=== PATIENT | male | born 1945 | race Caucasian/White ===

== ENCOUNTER 2020-03-16 06:11 | Day surgery (SDC) | payer OTHER ==
[2020-03-16] MEDS ORDERED: LIDOCAINE-MPF 2% 5 ML VIAL IM ONE (06:12)
[2020-03-16] MEDS ORDERED: MIDAZOLAM 2 MG/2 ML VIAL IVP ONE (06:12)
[2020-03-16] MEDS ORDERED: PROPOFOL 200 MG/20 ML VIAL IVP ONE (06:12)
[2020-03-16] MEDS ORDERED: fentaNYL 100 MCG/2 ML VIAL IVP ONE (06:12)
[2020-03-16] MEDS ORDERED: LACTATED RINGERS 1,000 ML IV ONE (06:35)
[2020-03-16] MEDS ORDERED: CEFAZOLIN SODIUM IN 0.9 % NACL 2 GM/100 ML BAG IV ONE (07:01)
[2020-03-16] MEDS ORDERED: LIDOCAINE 1%-EPI 1:100000 20 ML MDV SUBQ ONE ×2 (07:17)
[2020-03-16] MEDS ORDERED: BUPIVACAINE 0.25% PF 30 ML VIAL SUBQ ONE (07:17)
[2020-03-16] MEDS ORDERED: BUPIVACAINE 0.25% PF 30 ML VIAL ONE (07:18)
[2020-03-16] MEDS ORDERED: LIDOCAINE 1%-EPI 1:100000 20 ML MDV ONE (07:18)
--- NOTE | 2020-03-16 07:29 | ANESTHESIA ---
Pre-Anesthesia VS, & Labs - Diagnosis left chest cancer - Procedure portacath placement Vital Signs: Temp Pulse Resp BP Pulse Ox 36.4 C L 76 18 109/83 H 99 03/16/20 06:37 03/16/20 06:37 03/16/20 06:37 03/16/20 06:37 03/16/20 06:37 Height 6 ft 3 in Weight (kg) 70 kg Body Mass Index 20.2 - NPO >8 hours - Lab Results Lab results reviewed: Yes Home Medications and Allergies Home Medications: Ambulatory Orders Vit A/Vit C/Vit E/Zinc/Copper [Preservision Areds Softgel] 1 each PO DAILY 03/12/20 Acyclovir 400 mg PO BID 03/03/20 Aspirin 325 mg PO DAILY 03/03/20 Atorvastatin Calcium 40 mg PO DAILY 03/03/20 Dronedarone HCl [Multaq] 400 mg PO DAILY 03/03/20 Multivitamin [Daily Multiple Vitamin] 1 tab PO BID 03/03/20 Sulfamethox/Trimeth 800/160 [Bactrim Ds] 1 tab PO DAILY 03/03/20 Vit A/Vit C/Vit E/Zinc/Copper [Preservision Areds Softgel] 1 each PO DAILY 03/12/20 Allergies/Adverse Reactions: Allergies Allergy/AdvReac Type Severity Reaction Status Date / Time No Known Drug Allergies Allergy Verified 03/03/20 07:56 Anes History & Medical History - Anesthetic History Anesthesia Complications: reports: No previous complications, Other-see comment (eyelid skin torn previously, secondary to removal of eye tape. requests eyes not be taped closed) - Medical History Cardiovascular: reports: Hypertension, High cholesterol, Coronary artery disease, Atrial fibrillation Pulmonary: reports: None, Other (chest cancer) Gastrointestinal: reports: Hepatitis, Other Urinary: reports: Nocturia Neuro: reports: CVA (no residual weakness) Musculoskeletal: reports: Osteoarthritis Endocrine/Autoimmune: reports: HyPOthyroidism Skin: reports: Other Smoking Status: Former smoker Other Past Medical History: Hx throat cancer 2017, s/p radiation therapy - Surgical History General: Other Cardiothoracic: Cardiac catheterization Exam General: Alert, Oriented x3, Cooperative Dental: Poor dentition, Other Mouth Opening: Greater than 4 Fingerbreadths Neck Mobility: Normal Mallampati classification: III Thyromental Distance: 4-6 cm Respiratory: Lungs clear Cardiovascular: Regular rate Plan Anesthesia Type: MAC Consent for Procedure(s) Verified and Reviewed: Yes Code Status: Attempt Resuscitation ASA classification: 3-Severe systemic disease Is this case an emergency?: No
[2020-03-16] MEDS ORDERED: ceFAZolin 1 GM VIAL ONE (07:43)
[2020-03-16] MEDS ORDERED: ceFAZolin 1 GM VIAL IR ONE (07:59)
[2020-03-16] MEDS ORDERED: HYDROcod/ACETAM 5/325 MG TABLET PO PRN (08:29)
--- NOTE | 2020-03-16 09:23 | OPERATIVE REPORT ---
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 PROCEDURES PERFORMED 1. Left subclavian vein PowerPort Placement. 2. Fluoroscopic guidance for proper positioning. SURGEON: Cesar Armstrong MD ANESTHESIA: Monitored anesthesia care, IV sedation, local anesthesia. COMPLICATIONS: None. SPECIMEN: None. ESTIMATED BLOOD LOSS: Less than 5 mL DRAINS: None. FINDINGS: Good PowerPort placement with tip at the junction of the atrium and the superior vena cava. The port flushed and aspirated easily. INDICATIONS FOR PROCEDURE: The patient is an otherwise healthy, active, 74-year-old gentleman with metastatic cancer. He presents for PowerPort placement. He has had chemotherapy and radiation in the past. Risks discussed, alternatives discussed. All questions answered and consent obtained. DETAILS OF PROCEDURE: The patient was properly identified, brought to the operating room and placed in the supine position. Monitored anesthesia care was given, as well as IV sedation. Bilateral arms were tucked. He was prepped and draped in a sterile fashion, given preoperative antibiotics. The left subclavian vein was easily accessed on the first pass with a needle. A guidewire was placed in proper position, confirmed under fluoroscopy. A subcutaneous pocket was created through a 3 cm left upper chest incision. Gnpe-w-gbmbfisp tubing was then placed through a small subcutaneous tunnel, up to the guidewire. The ljok-b-blomdway tubing was placed with a dilator peel- away sheath. Tubing was pulled into proper position. Catheter was flushed with heparin. Catheter was cut to size and port assembled. Tngg-u-lcrqbcki was secured to chest musculature with 2 interrupted 5-0 Prolene sutures. The port was again aspirated and flushed. Buried interrupted subdermal 3-0 Vicryl sutures were placed. Skin was closed with buried interrupted and running 4-0 Monocryl subcuticular suture. Dermabond was used as a dressing. The port was left accessed for chemotherapy today. He tolerated the procedure very well. TD: 03/16/2020 08:55 CESAR
[2020-03-16 09:49] VITALS: BP 119/70
--- NOTE | 2020-03-16 16:55 | XRAY Report ---
Reason: PORT PLACEMENT Procedure Date: 03/16/2020 Accession Number: [id number] / [id number] Procedure: [place] - OR C-Arm Procedure CPT Code: Final Report FULL RESULT: PROCEDURE: OR C-Arm Procedure INDICATIONS: PORT PLACEMENT TECHNIQUE: Intraoperative imagee for placement of Port-A-Cath. COMPARISON: None. FINDINGS: Images are labeled left Port-A-Cath. Distal tip is projected over what is presumed to be the right side of the image. Soft tissue landmarks are not well visualized. However, it is likely projecting over the mid/distal SVC. IMPRESSION: Limited visualization of distal Port-A-Cath tip. Postplacement chest x-ray is recommended. Reviewed by: Natacha Casiano MD on 03/16/2020 4:53 PM PDT Approved by: Natacha Casiano MD on 03/16/2020 4:53 PM PDT Station ID: [id number]
== END 2020-03-16 06:12 | disposition home or self-care (01) ==
LOC: SDS 06:11
PROVIDERS: ATTEND Surgery
DX: C02.9 Malignant neoplasm of tongue, unspecified (principal); C79.89 Secondary malignant neoplasm of other specified sites; I48.20 Chronic atrial fibrillation, unspecified; I50.9 Heart failure, unspecified; I11.0 Hypertensive heart disease with heart failure; I25.10 Atherosclerotic heart disease of native coronary artery without angina pectoris; Z87.891 Personal history of nicotine dependence; Z86.73 Personal history of transient ischemic attack (TIA), and cerebral infarction without residual deficits
CPT/HCPCS: 36561; C1788; J0690; J7120

== ENCOUNTER 2020-04-30 08:12 | Outpatient (CLI) | payer OTHER ==
[2020-04-30] MEDS ORDERED: IOVERSOL 320 100 ML VIAL IVP ONE ×2 (08:33→10:19)
--- NOTE | 2020-04-30 11:06 | CT Report ---
PROCEDURE: CHEST W INDICATIONS: PERSONAL HISTORY OF MALIGNANT NEOPLASM OF TONGUE CONTRAST: IV CONTRAST: Optiray 320 ml: 100 PO CONTRAST: *NO PO CONTRAST TECHNIQUE: After the administration of intravenous contrast, 5 mm thick sections acquired from the pulmonary api amanda to the posterior costophrenic angles. 7 mm thick coronal MIP reformats were acquired. For radia tion dose reduction, the following was used: automated exposure control, adjustment of mA and/or kV according to patient size. COMPARISON: None. FINDINGS: Image quality: Excellent. Lungs and pleura: No acute air space opacities are found suggestive of pneumonia but there is severe pulmonary hyperexpansion and centrilobular emphysema consistent with long-standing smoking history. No pleural effusions or pneumothorax. Central and peripheral airways are patent and normal in calib er. Mediastinum: Heart size is normal. No pericardial effusion. No mediastinal or hilar adenopathy by size criteria. Thoracic aorta and central pulmonary arteries are normal in size. Esophagus is ora l in caliber. No hiatal hernia. Port-A-Cath from a left-sided approach extends into the atrial cava l junction. Bones and chest wall: No suspicious bony lesions. No vertebral body compression fractures. No axil milton or supraclavicular adenopathy by size criteria. Thyroid gland that would suggest presence of pn eumonia, but there is a spiculated lung mass at the left hilum border posteriorly, comprised of an in filtrative appearing soft tissue mass extending to abut and possibly invading 4.0 cm craniocaudad, an d up to 4.2 cm AP and 2.6 cm transverse. It is best seen centered on CT series 4, image 144. There ma y be a component of lymphangitic spread of tumor at the posterior border of the mass extending into the adjacent lung parenchyma. At a similar axial level of the gregory within the left upper lobe laterally there is a smaller but mi ldly spiculated masslike lesion, seen on image 140. This measures up to 6 x 7 mm. Abdomen: Visualized upper abdominal solid organs appear normal. Upper abdominal bowel loops are nor mal in caliber. IMPRESSION: 1. Severe COPD, presumed long-standing smoking history. 2. Note is made of a posterior left hilar lung mass with potential involvement also by lymphangitic s pread of the adjacent lung parenchyma and early manifestation of left mediastinal invasion is suspect ed at the posterior border of the left main pulmonary artery. This measures up to approximately 4 cm in maximal dimension. 3. Note is made of a separate lung mass within the left upper lobe at a similar axial level, measurin g 6 x 7 mm. Reviewed by: Alex Mejias MD on 04/30/2020 11:04 AM PDT Approved by: Alex Mejias MD on 04/30/2020 11:04 AM PDT Station ID: [id number]
== END 2020-04-30 08:13 | disposition home or self-care (01) ==
LOC: DI 08:12
PROVIDERS: ATTEND Internal Medicine Hematology & Oncology
DX: J43.2 Centrilobular emphysema (principal); R91.8 Other nonspecific abnormal finding of lung field; C02.9 Malignant neoplasm of tongue, unspecified
CPT/HCPCS: 71260; Q9967

== ENCOUNTER 2020-08-26 10:35 | Outpatient (CLI) | payer OTHER ==
[2020-08-26] MEDS ORDERED: IOVERSOL 320 50 ML VIAL ONE (10:51)
[2020-08-26] MEDS ORDERED: IOVERSOL 320 100 ML VIAL IVP ONE (10:51)
--- NOTE | 2020-08-26 12:25 | CT Report ---
PROCEDURE: CHEST W INDICATIONS: MALIGNANT NEOPLASM OF TONGUE CONTRAST: IV CONTRAST: Optiray 320 ml: 100 PO CONTRAST: Optiray 320 ml50 TECHNIQUE: After the administration of intravenous contrast, 5 mm thick sections acquired from the pulmonary api amanda to the posterior costophrenic angles. 7 mm thick coronal MIP reformats were acquired. For radia tion dose reduction, the following was used: automated exposure control, adjustment of mA and/or kV according to patient size. COMPARISON: 04/30/2020. FINDINGS: Previously identified left hilar mass extending into superior segment left lower lobe lung parenchyma has increased in size. This currently measures approximately 4.1 x 3.2 cm maximum axial dimension an d 4.2 cm craniocaudal dimension. The border of the lesion with the adjacent lung appears more spicula scar and hazy when compared with the prior study, suggesting an interval increase in the extent of lym phangitic spread and parenchymal extension. Specifically, there is increased masslike soft tissue den sity extending linearly in a posterior direction from the posterior margin of the mass. There is also a probable small satellite nodule posterior to the lesion measuring 9 mm (series 2 image 26). Separate mass abutting the medial pleura in the anterior-medial left upper lobe has also increased in size. This measures approximately 2.4 x 2.2 cm maximum axial dimension when compared with approximat augustina 1.1 x 1.8 cm on the prior study (remeasured using similar technique). Background emphysematous changes are similar. No suspicious lesion in the right lung. No definite axillary or supraclavicular lymphadenopathy. No suspicious lytic or blastic osseous lesio n. IMPRESSION: Increased size of the previously described left hilar mass, with increased degree of invasion into th e adjacent lung parenchyma. Probable satellite nodule in the superior segment left upper lobe adjacent to the left hilar mass. Increased size of a separate left upper lobe mass when compared with the prior study. Overall, findings are consistent with disease progression. Reviewed by: Tobi Waite MD on 08/26/2020 12:24 PM PST Approved by: Tobi Waite MD on 08/26/2020 12:24 PM PST Station ID: [id number]
--- NOTE | 2020-08-26 12:33 | CT Report ---
PROCEDURE: Abdomen/Pelvis W INDICATIONS: MALIGNANT NEOPLASM OF TONGUE CONTRAST: IV CONTRAST: Optiray 320 ml: 100 PO CONTRAST: Optiray 320 ml50 TECHNIQUE: After the administration of intravenous contrast, 5 mm thick sections acquired from the diaphragms to the symphysis. 5 mm thick coronal and sagittal reformats were acquired. For radiation dose reducti on, the following was used: automated exposure control, adjustment of mA and/or kV according to kalen ent size. COMPARISON: None. FINDINGS: Image quality: Excellent. ABDOMEN: Lung bases: Lung bases are clear. Heart size is normal. Solid organs: No mass lesion or acute finding of the liver, spleen, pancreas, or adrenal glands. Cyst in the medial right kidney is unchanged. No evidence of solid renal mass. No findings of hydronephro sis. Peritoneum and bowel: There is diffuse edema and small volume free fluid in the abdomen, nonspecific. No abnormally dilated loop of bowel. Large volume of formed stool throughout the colon. No free air. Nodes and vessels: No retroperitoneal or mesenteric adenopathy by size criteria. Aorta and inferior vena cava are normal in size. Miscellaneous: No ventral hernias. PELVIS: Genitourinary: Bladder wall thickness is normal. Miscellaneous: No inguinal hernias or adenopathy. Bones: No suspicious bony lesions. No vertebral body compression fractures. IMPRESSION: No findings of metastatic disease in the abdomen or pelvis. Diffuse mild intra-abdominal and superficial soft tissue edema with small volume free fluid, presumab ly due to volume overload or third spacing of fluids. Correlate clinically. Reviewed by: Tobi Waite MD on 08/26/2020 12:32 PM PST Approved by: Tobi Waite MD on 08/26/2020 12:32 PM PST Station ID: [id number]
== END 2020-08-26 10:36 | disposition home or self-care (01) ==
LOC: MAC.MOP 10:35
PROVIDERS: ATTEND Internal Medicine Hematology & Oncology
DX: C01 Malignant neoplasm of base of tongue (principal); C78.02 Secondary malignant neoplasm of left lung
CPT/HCPCS: 71260; 74177; Q9967

== ENCOUNTER 2020-10-02 09:03 | Emergency (ER) | payer OTHER ==
[2020-10-02] MEDS ORDERED: LACTATED RINGERS 1,000 ML IV STA ×2 (09:30→12:24)
[2020-10-02] MEDS ORDERED: ACETAMINOPHEN 325 MG TABLET PO STA (09:30)
[2020-10-02] MEDS ORDERED: BACITRACIN ZINC OINT 1 PACKET TOP STA (09:44)
--- NOTE | 2020-10-02 09:51 | ED Physician Documentation ---
History of Present Illness - Stated complaint Stated Complaint: FEVER - Chief complaint Chief Complaint: Fever - History obtained from History obtained from: Patient - Additonal information Additional information: 75-year-old man with past medical history of throat cancer metastatic to the lung status post 2 rounds of chemotherapy and radiation, currently on third round with first chemo last Sunday (oncologist Dr. Shirley), presents with temperature of 100.3 yesterday and 100.9 this morning associated with fatigue and generalized body aches the past couple days. Patient has a chronic cough that he states has not changed recently. Denies chest pain, shortness of breath, nausea vomiting diarrhea abdominal pain urinary symptoms or URI symptoms. Denies sick contacts. He is ambulatory independently at home and has not had any leg swelling. Review of Systems Ten Systems: 10 systems reviewed and negative Constitutional: reports: Fever, Chills, Myalgias, Fatigue Cardiac: denies: Chest pain / pressure Respiratory: reports: Cough (Chronic nonproductive cough.). denies: Dyspnea, Hemoptysis GI: reports: Nausea. denies: Abdominal Pain, Vomiting : denies: Dysuria Skin: reports: Abrasion (s) PD PAST MEDICAL HISTORY - Past Medical History Cardiovascular: Hypertension, High cholesterol, Coronary artery disease, Atrial fibrillation Respiratory: None, Other (chest cancer) Neuro: CVA (no residual weakness) Endocrine/Autoimmune: HyPOthyroidism GI: Hepatitis, Other : Nocturia HEENT: Chronic vision loss, Other Psych: None Musculoskeletal: Osteoarthritis Derm: Other - Past Surgical History General: Other Cardiovascular: Cardiac catheterization - Present Medications Home Medications: Ambulatory Orders Medication Instructions Recorded Confirmed Acyclovir 400 mg PO BID 03/03/20 09/21/20 Aspirin 325 mg PO DAILY 03/03/20 09/21/20 Atorvastatin Calcium 40 mg PO DAILY 03/03/20 09/21/20 Dronedarone HCl [Multaq] 400 mg PO DAILY 03/03/20 09/21/20 Multivitamin [Daily Multiple 1 tab PO BID 03/03/20 09/21/20 Vitamin] Sulfamethox/Trimeth 800/160 1 tab PO DAILY 03/03/20 09/21/20 [Bactrim Ds] Vit A/Vit C/Vit E/Zinc/Copper 1 each PO DAILY 03/12/20 09/21/20 [Preservision Areds Softgel] Lidocaine/Prilocain 2.5% Cream 1 applic TOP DAILY PRN 03/16/20 09/21/20 [Emla 2.5% Cream] Lidocaine/Prilocain 2.5% Cream 30 gm TOP DAILY PRN #1 tube 03/16/20 09/21/20 [Emla 2.5% Cream] Prochlorperazine Maleate 10 mg PO Q6HR PRN #30 tab 03/16/20 09/21/20 [Compazine] Clindamycin/Niacinamide 1 each TP BID PRN 05/18/20 09/21/20 [Clindamycin 1%-Niacinamide 4%] Tretinoin/Emollient Base 40 gm TP DAILY PRN 05/18/20 09/21/20 [Tretinoin 0.05% Emollient Crm] Doxycycline Hyclate 100 mg PO BID 14 Days #28 tablet. 10/02/20 - Allergies Allergies/Adverse Reactions: Allergies Allergy/AdvReac Type Severity Reaction Status Date / Time No Known Drug Allergies Allergy Verified 10/02/20 09:09 - Social History Smoking Status: Former smoker PD ED PE NORMAL - Vitals Vital signs reviewed: Yes - General General: Alert and oriented X 3 - HEENT HEENT: Atraumatic, PERRL, EOMI - Neck Neck: Supple, no meningeal sign - Cardiac Cardiac: RRR, No murmur - Respiratory Respiratory: No respiratory distress, Clear bilaterally - Abdomen Abdomen: Non tender, Non distended, Other (PEG tube in place) - Male Male : Deferred - Rectal Rectal: Deferred - Back Back: No CVA TTP, No spinal TTP - Derm Derm: Normal color, Other (BL upper back skin changes with L upper back avulsed skin and surrounding erythema. ) - Extremities Extremities: No deformity, No edema - Neuro Neuro: Alert and oriented X 3 - Psych Psych: Normal mood, Normal affect Results - Vitals Vitals: Vital Signs - 24 hr 10/02/20 10/02/20 10/02/20 09:09 10:14 10:29 Temperature 36.9 C 37.2 C Heart Rate 100 90 Respiratory 18 18 Rate Blood Pressure 95/63 107/72 O2 Saturation 100 100 10/02/20 10/02/20 10/02/20 11:29 12:00 12:40 Temperature 98.7 C H Heart Rate 84 60 Respiratory 18 16 Rate Blood Pressure 103/62 82/59 L 97/57 L O2 Saturation 99 99 Oxygen O2 Source Room air - Labs Labs: Laboratory Tests 10/02/20 10/02/20 10/02/20 10:00 10:00 10:00 WBC 6.9 RBC 2.48 L Hgb 9.0 L Hct 26.6 L MCV 107.3 H MCH 36.3 H MCHC 33.8 RDW 12.7 Plt Count 200 MPV 8.6 Neut # (Auto) 6.5 Lymph # (Auto) 0.2 L Wise # (Auto) 0.1 Eos # (Auto) 0.0 Baso # (Auto) 0.0 Absolute Nucleated RBC 0.00 Nucleated RBC % 0.0 Sodium 132 L Potassium 4.2 Chloride 98 L Carbon Dioxide 24 Anion Gap 10.0 BUN 28 H Creatinine 0.7 Estimated GFR (MDRD) 110 Glucose 103 H Lactic Acid 1.3 Calcium 8.4 L Total Bilirubin 1.0 AST 60 H ALT 60 Alkaline Phosphatase 212 H Total Protein 5.6 L Albumin 3.0 L Globulin 2.6 Albumin/Globulin Ratio 1.2 Nasal Adenovirus (PCR) Nasal B. parapertussis DNA (PCR) Nasal Coronavir 229E PCR Nasal Coronavir HKU1 PCR Nasal Coronavir NL63 PCR Nasal Coronavir OC43 PCR Nasal Enterovir/Rhinovir PCR Nasal Influenza B PCR Nasal Influenza A PCR Nasal Parainfluen 1 PCR Nasal Parainfluen 2 PCR Nasal Parainfluen 3 PCR Nasal Parainfluen 4 PCR Nasal RSV (PCR) Nasal B.pertussis DNA PCR Nasal C.pneumoniae (PCR) David Human Metapneumo PCR Nasal M.pneumoniae (PCR) Nasal SARS-CoV-2 (PCR) 10/02/20 10:40 WBC RBC Hgb Hct MCV MCH MCHC RDW Plt Count MPV Neut # (Auto) Lymph # (Auto) Wise # (Auto) Eos # (Auto) Baso # (Auto) Absolute Nucleated RBC Nucleated RBC % Sodium Potassium Chloride Carbon Dioxide Anion Gap BUN Creatinine Estimated GFR (MDRD) Glucose Lactic Acid Calcium Total Bilirubin AST ALT Alkaline Phosphatase Total Protein Albumin Globulin Albumin/Globulin Ratio Nasal Adenovirus (PCR) NOT DETECTED Nasal B. parapertussis DNA (PCR) NOT DETECTED Nasal Coronavir 229E PCR NOT DETECTED Nasal Coronavir HKU1 PCR NOT DETECTED Nasal Coronavir NL63 PCR NOT DETECTED Nasal Coronavir OC43 PCR NOT DETECTED Nasal Enterovir/Rhinovir PCR NOT DETECTED Nasal Influenza B PCR NOT DETECTED Nasal Influenza A PCR NOT DETECTED Nasal Parainfluen 1 PCR NOT DETECTED Nasal Parainfluen 2 PCR NOT DETECTED Nasal Parainfluen 3 PCR NOT DETECTED Nasal Parainfluen 4 PCR NOT DETECTED Nasal RSV (PCR) NOT DETECTED Nasal B.pertussis DNA PCR NOT DETECTED Nasal C.pneumoniae (PCR) NOT DETECTED David Human Metapneumo PCR NOT DETECTED Nasal M.pneumoniae (PCR) NOT DETECTED Nasal SARS-CoV-2 (PCR) NOT DETECTED PD MEDICAL DECISION MAKING - ED course ED course: 9:45am - on arrival to ED, sepsis suspected and I initiated septic workup. patient without known source at this time though he does have chronic skin breakdown to BL upper back he attributes to his prior radiation treatment. The left side is erythematous, possible source. last tylenol reported to be between midnight and 3am. patient afebrile orally, and declining rectal temp at this time. states his systolic blood pressure is usually in the low 100s. Departure - Departure Disposition: 01 Home, Self Care Clinical Impression: Cellulitis, Fever Condition: Good Instructions: ED Fever Unconf Cause Prescriptions: Doxycycline Hyclate 100 mg PO BID 14 Days #28 tablet. Comments: You were seen in the emergency department for fever. Your bloodwork did not show concerning findings, except for possible dehydration. your covid/respiratory viral test was negative. We did not find a clear source at this time, and you did not have fevers while here. This may be a side effect of your chemotherapy, or it could be a wound site infection from the damaged skin on your left upper back. We are going to treat you with doxycycline, an antibiotic, for now. If your blood cultures do not grow any bacteria, we may be able to stop antibiotics. Please follow up with your oncologist Dr. Shirley this week. Please do not use your topical isotretinoin vitamin A cream while on the antibiotic doxycycline. Make sure that you keep your skin covered when going outside and wear a hat at all times while taking this antibiotic.
[2020-10-02] MEDS ORDERED: KETOROLAC 30 MG/ML VIAL IVP STA (09:55)
[2020-10-02] MEDS ORDERED: DOXYCYCLINE INJ 100 MG in SODIUM CHLORIDE 0.9% MINIBAG 100 ML IV STA (09:55)
--- NOTE | 2020-10-02 10:07 | XRAY Report ---
PROCEDURE: Chest 1 View X-Ray INDICATIONS: sepsis suspected TECHNIQUE: One view of the chest was acquired. COMPARISON: 02/19/2019. Correlation is also made with chest CT examinations 04/30/2020 and 08/26/2020. FINDINGS: Surgical changes and devices: A left-sided chest port is seen, with the tip seen near the cavoatrial junction, as before. Lungs and pleura: No pleural effusions or pneumothorax. The patient's known stable left perihilar ma ss is again seen. No superimposed infiltrates are seen. Mediastinum: Mediastinal contours appear normal. Heart size is normal. Calcification is seen of th e aortic arch. Bones and chest wall: No suspicious bony lesions. Age-appropriate degenerative changes are seen. Overlying soft tissues appear unremarkable. IMPRESSION: No focal infiltrates are seen. The known left perihilar mass is again seen. Postoperative and degenerative changes are seen. Reviewed by: Dirk Baig MD on 10/02/2020 9:06 AM [facility] Approved by: Dirk Baig MD on 10/02/2020 9:06 AM [facility] Station ID: [id number]
[2020-10-02 10:10] LABS: BASOPHILS % (AUTO) 0.3 %; EOSINOPHILS % (AUTO) 0.1 %; LYMPHOCYTES # (AUTO) 0.2 10^3/uL (1.5-3.5); LYMPHOCYTES % (AUTO) 2.2 %; MEAN CORPUSCULAR HEMOGLOBIN 36.3 pg (27.0-31.0); MEAN CORPUSCULAR HGB CONC 33.8 g/dL (32.0-36.0); MEAN CORPUSCULAR VOLUME 107.3 fL (80.0-94.0); MEAN PLATELET VOLUME 8.6 fL (7.4-11.4); MONOCYTES # (AUTO) 0.1 10^3/uL (0.0-1.0); MONOCYTES % (AUTO) 1.9 %; NEUTROPHILS # (AUTO) 6.5 10^3/uL (1.5-6.6); NEUTROPHILS % (AUTO) 94.6 %; PLT - PLATELET COUNT 200 10^3/uL (130-450); RED BLOOD COUNT 2.48 10^6/uL (4.70-6.10); RED CELL DISTRIBUTION WIDTH 12.7 % (12.0-15.0); WHITE BLOOD COUNT 6.9 x10^3/uL (4.8-10.8)
[2020-10-02 10:20] LABS: ALBUMIN/GLOBULIN RATIO 1.2 (1.0-2.2); CALCIUM 8.4 mg/dL (8.5-10.3); CREATININE 0.7 mg/dL (0.6-1.2); TOTAL PROTEIN 5.6 g/dL (6.7-8.2)
[2020-10-02 12:14] LABS: C. PNEUMONIAE- RESP PCR PANEL NOT DETECTED
[2020-10-02 14:03] VITALS: BP 101/63
== END 2020-10-02 14:04 | disposition home or self-care (01) ==
LOC: ED 09:03
DX: L03.312 Cellulitis of back [any part except buttock and flank] (principal); R50.9 Fever, unspecified; Z20.822 Contact with and (suspected) exposure to COVID-19; C78.00 Secondary malignant neoplasm of unspecified lung; Z85.819 Personal history of malignant neoplasm of unspecified site of lip, oral cavity, and pharynx; Z92.3 Personal history of irradiation; I10 Essential (primary) hypertension; Z93.1 Gastrostomy status; Z87.891 Personal history of nicotine dependence; Z79.82 Long term (current) use of aspirin
CPT/HCPCS: 0202U; 36415; 71045; 80053; 83605; 85025; 87040; 96361; 96365; 96375; 99284; A9270; J7120

== ENCOUNTER 2021-03-11 06:52 | Outpatient (CLI) | payer OTHER ==
[2021-03-11] MEDS ORDERED: IOVERSOL 320 100 ML VIAL IVP ONE (10:44)
[2021-03-11] MEDS ORDERED: IOPAMIDOL-300 50 ML VIAL PO ONE (10:44)
--- NOTE | 2021-03-11 11:51 | CT Report ---
PROCEDURE: CHEST W INDICATIONS: HEAD, FACE, LUNG CA CONTRAST: IV CONTRAST: Optiray 320 ml: 100 PO CONTRAST: Isovue 300 ml50 TECHNIQUE: After the administration of intravenous contrast, 5 mm thick sections acquired from the pulmonary api amanda to the posterior costophrenic angles. 7 mm thick coronal MIP reformats were acquired. For radia tion dose reduction, the following was used: automated exposure control, adjustment of mA and/or kV according to patient size. COMPARISON: 12/08/2020 FINDINGS: Image quality: Excellent. Lungs and pleura: Spiculated left perihilar mass has decreased in size measuring 2.1 cm, previously 2.9 cm measured in the oblique AP diameter of the axial plane. Central cavitations have resolved. The re is persistent linear consolidation posterior medial to the mass towards the superior segment left lower lobe as well as increasing postobstructive consolidation superior lateral to the mass. Left ple ural effusion is stable. There has been interval increase in size of the left anterior mediastinal mass with spiculations exte nding into the anteromedial left upper lobe pulmonary parenchyma. It measures 3.1 cm in oblique AP di ameter, previously 2.2 cm, and the enhancing rim is thicker. It maintains a low-density center sugges ting necrosis. There has been interval enlargement of a now moderate-sized dependent right pleural effusion. Finding s are superimposed on a moderate emphysema. Fluid in the right major fissure and subpleural reticulat ion is again seen. A pleural-based anterior right lower lobe nodule measuring 6 mm is unchanged. There is material dependent within the trachea above the thoracic inlet. Distal airways are patent. Mediastinum: Heart size is normal. Heavy coronary artery calcification. No pericardial effusion. N o mediastinal or hilar adenopathy by size criteria. Thoracic aorta and central pulmonary arteries ar e normal in size. Esophagus is normal in caliber. No hiatal hernia. Bones and chest wall: Moderate soft tissue edema/anasarca. Left-sided Mediport is in place. No suspi cious bony lesions. No vertebral body compression fractures. Slight, stable prominence of left axill eric lymph nodes. No new bulky adenopathy.. The thyroid is normal in size and there are no incidental findings.. Abdomen: Please see separately dictated CT of the abdomen report. IMPRESSION: 1. Interval decreased size of left perihilar lung mass. 2. Interval increased size of a peripherally vascular, centrally necrotic left anterior perimediastin al mass. No other increased mediastinal adenopathy. 3. Interval increased size of right pleural effusion. 4. Stable left pleural effusion. 5. Stable prominent left axillary lymph nodes. Reviewed by: Jeanette Orta MD on 03/11/2021 11:50 AM PDT Approved by: Jeanette Orta MD on 03/11/2021 11:50 AM PDT Station ID: [id number]
--- NOTE | 2021-03-11 11:58 | CT Report ---
PROCEDURE: Abdomen/Pelvis W INDICATIONS: HEAD, FACE, LUNG CA CONTRAST: IV CONTRAST: Optiray 320 ml: 100 PO CONTRAST: Isovue 300 ml50 TECHNIQUE: After the administration of oral and IV contrast, 5 mm thick sections acquired from the diaphragms to the symphysis. 5 mm thick coronal and sagittal reformats were acquired. For radiation dose reducti on, the following was used: automated exposure control, adjustment of mA and/or kV according to kalen ent size. COMPARISON: 08/26/2020 FINDINGS: Image quality: Excellent. ABDOMEN: Lung bases: Please see accompanying chest CT report. Solid organs: Liver and spleen are normal in size and enhancement. Gallbladder is normal Biliary s ystem is non dilated. Pancreas enhances normally. No adrenal nodules. Kidneys demonstrate normal s ize and enhancement, without hydronephrosis. Right 1.7 cm medial renal cyst. Peritoneum and bowel: Moderate diffuse intraperitoneal ascites. There is a PEG tube in the stomach. Bowel loops demonstrate normal wall thickness and caliber. No free fluid or air. Nodes and vessels: No retroperitoneal or mesenteric adenopathy by size criteria. Aorta and inferior vena cava are normal in size. Heavy atherosclerotic calcification. Miscellaneous: Moderate diffuse anasarca of the body wall. PEG tube tract appears normal. No ventral hernias. PELVIS: Genitourinary: Bladder wall thickness is normal. Miscellaneous: No inguinal hernias or adenopathy. Bones: No suspicious bony lesions. No vertebral body compression fractures. IMPRESSION: 1. Interval increase in diffuse intra-abdominal ascites. 2. No new adenopathy in the abdomen or pelvis. 3. Body wall anasarca. Reviewed by: Jeanette Orta MD on 03/11/2021 11:57 AM PDT Approved by: Jeanette Orta MD on 03/11/2021 11:57 AM PDT Station ID: [id number]
== END 2021-03-11 06:53 | disposition home or self-care (01) ==
LOC: DI 06:52
PROVIDERS: ATTEND Internal Medicine Hematology & Oncology
DX: R91.8 Other nonspecific abnormal finding of lung field (principal); J98.59 Other diseases of mediastinum, not elsewhere classified; J90 Pleural effusion, not elsewhere classified; R59.0 Localized enlarged lymph nodes
CPT/HCPCS: 71260; 74177; Q9967

== ENCOUNTER 2021-04-14 09:31 | Outpatient (CLI) | payer OTHER | END 2021-04-14 09:32 | disposition E | LOC: EMS 09:31 ==